=== PATIENT | male | born 1990 | race Caucasian/White ===

== ENCOUNTER 2019-07-29 15:25 | Emergency (ER) | payer OTHER ==
[~2019-07-29] VITALS: Ht 170.2 cm; Wt 128.8 kg
[2019-07-29 15:32] VITALS: BP_SYST 163
--- NOTE | 2019-07-29 15:45 | NUR ---
Patient to ER bed H1 to gown for evaluation. Side rails up.
[2019-07-29] MEDS ORDERED: IBUPROFEN 600 MG TABLET PO ONE (16:00)
--- NOTE | 2019-07-29 16:00 | NUR ---
Pt came to ER after falling off curb and scraping R knee and dislocating L second toe. Pt in H1, VSS, resting, awaiting
--- NOTE | 2019-07-29 16:05 | NUR ---
ER at bedside examining patient.
[2019-07-29] MEDS ORDERED: LIDOCAINE 1%, 20 ML MDV 20 ML ONE (16:38)
--- NOTE | 2019-07-29 16:45 | NUR ---
Dr Wong performing wound care on pt.
[2019-07-29] MEDS ORDERED: BACITRACIN 1 GM OINT TP ONE (16:55)
[2019-07-29 17:00] VITALS: BP_SYST 163
--- NOTE | 2019-07-29 17:00 | NUR ---
Patient given written and verbal discharge instructions and verbalizes understanding. ER MD discussed with patient the results and treatment provided. Patient in stable condition. ID arm band removed. Patient educated on pain management and to follow up with PMD. Pain Scale 0/10. Opportunity for questions provided and answered. Medication side effect fact sheet provided.
== END 2019-07-29 17:00 | disposition home or self-care (01) ==
LOC: SED 15:25
DX: S93.119A Dislocation of interphalangeal joint of unspecified toe(s), initial encounter (principal); Z88.0 Allergy status to penicillin; W01.0XXA Fall on same level from slipping, tripping and stumbling without subsequent striking against object, initial encounter; Y93.89 Activity, other specified; Y92.89 Other specified places as the place of occurrence of the external cause; Y99.8 Other external cause status
CPT/HCPCS: 28660; 73610; 73630; 73660; 99284; J2001

== ENCOUNTER 2019-11-19 08:35 | Outpatient (CLI) | payer OTHER ==
[2019-11-19 09:44] LABS: BILIRUBIN,URINE 1+ (NEGATIVE); BLOOD, URINE NEGATIVE (NEGATIVE); CLARITY/URINE CLEAR (CLEAR); COLOR,URINE YELLOW (YELLOW); GLUCOSE,URINE NEGATIVE (NEGATIVE); KETONES,URINE NEGATIVE (NEGATIVE); LEUKOCYTE ESTERASE ,URINE NEGATIVE (NEGATIVE); NITRITE, URINE NEGATIVE (NEGATIVE); PROTEIN URINE 2+ (NEGATIVE); UROBILINOGEN,URINE 0.2 (0.2-1.0)
[2019-11-19 09:47] LABS: BASOPHILS # (AUTO) 0.1 K/uL (0.0-0.2); BASOPHILS % (AUTO) 0.4 % (0.0-2.0); EOSINOPHILS # (AUTO) 0.6 K/uL (0.0-0.4); EOSINOPHILS % (AUTO) 4.6 % (0.0-4.0); LYMPHOCYTES # (AUTO) 2.4 K/uL (1.0-5.5); LYMPHOCYTES % (AUTO) 19.5 % (20.5-51.5); MEAN CORPUSCULAR HEMOGLOBIN 27 pg (27-31); MEAN CORPUSCULAR HGB CONC 33 % (32-36); MEAN CORPUSCULAR VOLUME 82 fL (79.0-98.0); MONOCYTES # (AUTO) 0.8 K/uL (0.0-1.0); MONOCYTES % (AUTO) 6.6 % (1.7-9.3); NEUTROPHILS # (AUTO) 8.5 K/uL (1.8-7.7); NEUTROPHILS % (AUTO) 68.9 % (40.0-70.0); PLATELET COUNT (AUTO) 251 K/uL (130-430); RED CELL DISTRIBUTION WIDTH 14.7 % (9.0-15.0); WHITE BLOOD COUNT (AUTO) 12.3 K/uL (4.8-10.8)
[2019-11-19 10:06] LABS: ALBUMIN 3.3 g/dL (3.4-4.8); CALCIUM 8.7 mg/dL (8.4-11.0); CREATININE 0.91 mg/dL (0.55-1.30); POTASSIUM 3.9 mmol/L (3.5-5.1); THYROID STIMULATING HORMONE 2.98 uIu/mL (0.34-4.82); TOTAL BILIRUBIN 0.8 mg/dL (0.0-1.0)
[2019-11-19 10:17] LABS: BACTERIA,URINE RARE /HPF (None Seen); MUCUS,URINE 1+ /LPF (None Seen); RBC,URINE 0-3 /HPF (0-3)
== END 2019-11-19 21:10 | disposition home or self-care (01) ==
LOC: SLB 08:35
PROVIDERS: ATTEND Family Medicine
DX: Z00.00 Encounter for general adult medical examination without abnormal findings (principal); R94.6 Abnormal results of thyroid function studies
CPT/HCPCS: 36415; 80053; 80061; 81000-TC; 84443-TC; 85025

== ENCOUNTER 2020-04-27 11:24 | Emergency (ER) | payer OTHER ==
[~2020-04-27] VITALS: Ht 167.6 cm; Wt 208.7 kg
[2020-04-27 11:39] VITALS: BP_SYST 149
--- NOTE | 2020-04-27 11:45 | NUR ---
Patient to ER bed 5 to gown for evaluation. Side rails up. Report given to Liv MCKINNEY.
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
--- NOTE | 2020-04-27 11:48 | NUR ---
ER DR. CANELA AT THE BEDSIDE EXAMINING PT
[2020-04-27] MEDS ORDERED: KETOROLAC TROMETHAMINE 60 MG/2 ML VIAL IM ONE (12:00)
--- NOTE | 2020-04-27 12:37 | NUR ---
PORTABLE X-RAY AT THE BEDSIDE
[2020-04-27] MEDS ORDERED: IBUP-1971 PO (13:15)
[2020-04-27 13:41] VITALS: BP_SYST 141
--- NOTE | 2020-04-27 13:42 | NUR ---
Patient given written and verbal discharge instructions and verbalizes understanding. ER MD discussed with patient the results and treatment provided. Patient in stable condition. ID arm band removed. Rx of IBU given. Patient educated on pain management and to follow up with PMD. Pain Scale 2/10 Opportunity for questions provided and answered. Medication side effect fact sheet provided.
== END 2020-04-27 13:41 | disposition home or self-care (01) ==
LOC: SED 11:52
DX: M25.561 Pain in right knee (principal)
CPT/HCPCS: 71045; 73564; 96372; 99284; J1885

== ENCOUNTER 2020-11-23 09:45 | Emergency (ER) | payer OTHER, MEDICAID ==
[~2020-11-23] VITALS: Ht 167.6 cm; Wt 203.7 kg
[~2020-11-23 09:45] MED LIST: IBUP-1971 PO
[2020-11-23 09:56] VITALS: BP_SYST 154
[2020-11-23] MEDS ORDERED: IBUPROFEN 600 MG TABLET PO ONE (10:15)
[2020-11-23] MEDS ORDERED: TRAM50TA PO (10:29)
[2020-11-23] MEDS ORDERED: NAPR-688 PO (10:29)
== END 2020-11-23 10:37 | disposition home or self-care (01) ==
LOC: SED 09:45
DX: S39.012A Strain of muscle, fascia and tendon of lower back, initial encounter (principal); I10 Essential (primary) hypertension; Z88.0 Allergy status to penicillin; Z79.899 Other long term (current) drug therapy; V49.49XA Driver injured in collision with other motor vehicles in traffic accident, initial encounter; Y93.89 Activity, other specified; Y92.89 Other specified places as the place of occurrence of the external cause; Y99.8 Other external cause status
CPT/HCPCS: 72100-TC; 99283

== ENCOUNTER 2021-01-08 00:35 | Emergency (ER) | payer MEDICAID ==
[~2021-01-08] VITALS: Ht 167.6 cm; Wt 202.3 kg
[~2021-01-08 00:35] MED LIST changes: +NAPR-688 PO; +TRAM50TA PO
[2021-01-08 01:14] VITALS: BP_SYST 147
--- NOTE | 2021-01-08 01:14 | NUR ---
Patient to ER chair to gown for evaluation. Side rails up. Report given to FAYE Maria
[2021-01-08] MEDS ORDERED: ONDANSETRON 4 MG ODT TAB PO ONE (01:15)
[2021-01-08] MEDS ORDERED: PRO40 PO ×2 (01:15→01:51)
[2021-01-08] MEDS ORDERED: ONDA-8 TL ×2 (01:15→01:51)
[2021-01-08] MEDS ORDERED: PANTOPRAZOLE SODIUM 40 MG TAB PO ONE (01:15)
[2021-01-08] MEDS ORDERED: MAG HYDROX/AL HYDROX/SIMETH 30 ML, DICYCLOMINE HCL 20 MG, LIDOCAINE VISCOUS 2% 15ML (PO... PO ONE ×3 (01:15)
--- NOTE | 2021-01-08 01:28 | NUR ---
ER at bedside examining patient.
[2021-01-08] MEDS ORDERED: PANTOPRAZOLE SODIUM 40 MG TAB ONE (01:37)
--- NOTE | 2021-01-08 01:40 | NUR ---
pt arrived for complaints of abdominal pain and nausea for 2 days now. pt states 8/10 pain, and unable to hold much down. pressure in the abdomen. vomiting for 2 days aas well. diarhea for 3 days. a&ox4.
--- NOTE | 2021-01-08 01:52 | NUR ---
Patient given written and verbal discharge instructions and verbalizes understanding. ER MD discussed with patient the results and treatment provided. Patient in stable condition. ID arm band removed. Rx of zofran, protonix given. Patient educated on pain management and to follow up with PMD. Pain Scale 6/10. Opportunity for questions provided and answered. Medication side effect fact sheet provided.
[2021-01-08 01:55] VITALS: BP_SYST 147
== END 2021-01-08 01:52 | disposition home or self-care (01) ==
LOC: SED 00:35
DX: R10.13 Epigastric pain (principal); I10 Essential (primary) hypertension; Z88.0 Allergy status to penicillin; Z79.899 Other long term (current) drug therapy
CPT/HCPCS: 99284; J2001; Q0162

== ENCOUNTER 2021-02-28 08:02 | Emergency (ER) | payer MEDICAID, SELFPAY ==
[~2021-02-28] VITALS: Ht 172.7 cm; Wt 200.0 kg
[~2021-02-28 08:02] MED LIST changes: +ONDA-8 TL; +PRO40 PO
[2021-02-28 09:33] VITALS: BP_SYST 144
--- NOTE | 2021-02-28 11:00 | NUR ---
Patient eloped. Did not sign AMA.
== END 2021-02-28 11:00 | disposition left against medical advice (07) ==
LOC: SED 08:02
DX: R10.84 Generalized abdominal pain (principal); I10 Essential (primary) hypertension; Z88.0 Allergy status to penicillin
CPT/HCPCS: 76376; 81002; 99284

== ENCOUNTER 2021-08-29 01:43 | Emergency (ER) | payer MEDICAID ==
[~2021-08-29] VITALS: Ht 170.2 cm; Wt 200.5 kg
[2021-08-29 01:43] VITALS: BP_SYST 148
--- NOTE | 2021-08-29 01:43 | NUR ---
Patient triaged and placed in waiting room. VSS and patient appears in no acute distress at this time. Accompanied by SELF, awaiting available bed, and MD notified of need for MSE.
[2021-08-29] MEDS ORDERED: ASPIRIN 81 MG TAB.CHEW PO ONE (03:00)
--- NOTE | 2021-08-29 03:10 | NUR ---
PT STATES HE DOES NOT WANT TO WAIT ANY LONGER. PT LEFT WITHOUT BEING SEEN BY
[2021-08-29 03:35] LABS: BASOPHILS # (AUTO) 0.1 K/uL (0.0-0.2); EOSINOPHILS # (AUTO) 0.1 K/uL (0.0-0.4); EOSINOPHILS % (AUTO) 0.9 % (0.0-4.0); HEMATOCRIT 44.1 % (36-54); LYMPHOCYTES # (AUTO) 2.7 K/uL (1.0-5.5); LYMPHOCYTES % (AUTO) 18.7 % (20.5-51.5); MEAN CORPUSCULAR HEMOGLOBIN 27 pg (27-31); MEAN CORPUSCULAR HGB CONC 34 % (32-36); MEAN CORPUSCULAR VOLUME 80 fL (79.0-98.0); MONOCYTES # (AUTO) 1.2 K/uL (0.0-1.0); NEUTROPHILS # (AUTO) 10.3 K/uL (1.8-7.7); NEUTROPHILS % (AUTO) 71.4 % (40.0-70.0); PLATELET COUNT (AUTO) 223 K/uL (130-430); RED BLOOD CELL COUNT(AUTO) 5.48 MIL/uL (4.2-6.2); RED CELL DISTRIBUTION WIDTH 14.6 % (9.0-15.0); WHITE BLOOD COUNT (AUTO) 14.4 K/uL (4.8-10.8)
[2021-08-29 03:59] LABS: ANION GAP 11 (5-15); CALCIUM 9.2 mg/dL (8.4-11.0); CHLORIDE 103 mmol/L (98-107); CREATININE 1.11 mg/dL (0.55-1.30); GLUCOSE 101 mg/dL (70-99); POTASSIUM 3.7 mmol/L (3.5-5.1); SODIUM SERUM 138 mmol/L (136-145); UREA NITROGEN, BLOOD 15 mg/dL (8-21)
[2021-08-29 04:07] LABS: ALANINE AMINOTRANSFERASE 24 U/L (12-78); ALBUMIN 3.4 g/dL (3.4-4.8); ASPARTATE AMINOTRANSFERASE 20 U/L (10-37); TOTAL BILIRUBIN 0.7 mg/dL (0.0-1.0)
[2021-08-29 04:13] LABS: GFR AFRICAN AMERICAN 99 mL/min (>90)
== END 2021-08-29 03:10 | disposition left against medical advice (07) ==
LOC: SED 01:43
DX: R00.2 Palpitations (principal); Z53.21 Procedure and treatment not carried out due to patient leaving prior to being seen by health care provider
CPT/HCPCS: 36415; 71045; 80053; 83880; 84484; 85025; 85379; 93005